=== PATIENT | female | born 1955 | race Caucasian/White ===

== ENCOUNTER 2018-01-02 02:52 | Emergency (ER) | payer OTHER, MEDICARE ==
[~2018-01-02] VITALS: Ht 154.9 cm; Wt 86.6 kg
[~2018-01-02 02:52] MED LIST: AMOXIL500 MG PO; BACTRIM DS 8001 TAB PO; LISINOPRIL/HYDR1 TAB PO
--- NOTE | 2018-01-02 02:59 | ED GI/GU/ABDOMINAL COMPLAINT ---
History of Present Illness General Chief Complaint: Abdominal Pain/Flank Pain Stated Complaint: "ABD PAIN IN BELLY BUTTON, BURNING URINATION" Source: patient Exam Limitations: no limitations Vital Signs & Intake/Output Vital Signs & Intake/Output Vital Signs Date Time Temp Pulse Resp B/P B/P Pulse O2 O2 Flow FiO2 Mean Ox Delivery Rate 01/02 0357 97.4 89 18 149/84 99 Room Air 01/02 0315 98 Room Air 01/02 0307 97.6 103 18 134/103 99 Room Air Allergies Coded Allergies: MDX - Aspirin (Aspirin) (U 07/18/12) Tetanus Vaccines and Toxoid (RASH 01/02/18) Reconcile Medications Amoxicillin (Amoxil) 500 MG CAP 1 TAB PO TID CELLULITIS Clotrimazole (Lotrimin AF) 1 % CREAM..G. 1 SHERIE TOP BID fungal skin infection apply to affected area(s)x 7 days LISINOPRIL/HYDROCHLOROTHIAZIDE (Lisinopril-Hctz 10-12.5 MG Tab) 1 TAB TAB 1 TAB PO DAILY HEART HEALTH (Reported) Phenazopyridine HCl (Pyridium) 100 MG TABLET 1 TAB PO TID PRN painful urination Sulfamethoxazole/Trimethopri (Bactrim Ds 800 MG-160 MG) 1 TAB TAB 1 TAB PO BID CELLULITIS Triage Nurses Notes Reviewed? yes ? n Is pt currently ? No Onset: Gradual Duration: day(s): Timing: recent history Quality/Severity: burning Location: suprapubic Radiation: no radiation Prior Abdominal Problems: none Modifying Factors: Improves With: rest. Worsens With: urinating. Associated Symptoms: dysuria, itchy rash at umbilicus HPI: 62 yo woman in prior good health presents with 2-3 days of dysuria, increased urination, without flank pain, fever, chills. She also noted yesterday an itchy red rash in her umbilicus, without tenderness, discharge, pain. She is otherwise well. Past History Travel History Traveled to [place] past 21 day No Medical History Any Pertinent Medical History? see below for history Surgical History Surgical History: none, non-contributory Psychosocial History What is your primary language [place] Family History Hx Contributory? No Review of Systems Review of Systems Constitutional: Reports: no symptoms. EENTM: Reports: no symptoms. Respiratory: Reports: no symptoms. Cardiovascular: Reports: no symptoms. GI: Reports: no symptoms. Genitourinary: Reports: no symptoms. Musculoskeletal: Reports: no symptoms. Skin: Reports: no symptoms. Neurological/Psychological: Reports: no symptoms. Hematologic/Endocrine: Reports: no symptoms. Immunologic/Allergic: Reports: no symptoms. All Other Systems: Reviewed and Negative Physical Exam Physical Exam General Appearance: well developed/nourished, no apparent distress Head: atraumatic, normal appearance Eyes: Bilateral: normal appearance. Ears, Nose, Throat, Mouth: hearing grossly normal, moist mucous membrane Neck: normal inspection, supple, full range of motion Respiratory: normal breath sounds, chest non-tender, no respiratory distress, quiet respiration, lungs clear Cardiovascular: regular rate/rhythm Gastrointestinal: non tenderness to firm palpation in all 4 quadrants. umbilicus with erythema, non tender, c/w fungus infection Back: normal inspection, normal range of motion Extremities: normal range of motion Neurologic/Psych: no motor/sensory deficits, awake, alert, oriented x 3 Skin: intact, normal color, warm/dry Core Measures ACS in differential dx? No Sepsis Present: No Sepsis Focused Exam Completed? No Progress Differential Diagnosis: uti vs other. Plan of Care: Orders Procedure Date/time Status URINALYSIS 01/03 256 Complete Laboratory Tests 01/02/18 0325: Urine Color YEL, Urine Clarity CLEAR, Urine pH 5.0, Ur Specific Cruger >= 1.030 , Urine Protein TRACE H, Urine Ketones NEG, Urine Nitrite NEG, Urine Bilirubin NEG, Urine Urobilinogen 0.2, Ur Leukocyte Esterase NEG, Ur Microscopic SEDIMENT EXAMINED, Urine RBC 1-3, Urine WBC RARE, Ur Epithelial Cells MOD H, Urine Mucus MANY H, Urine Hemoglobin SMALL H, Urine Glucose NEG 01/02/18 0256: Total Bilirubin Cancelled, Direct Bilirubin Cancelled, AST Cancelled, ALT Cancelled, Alkaline Phosphatase Cancelled, Total Protein Cancelled, Albumin Cancelled, CBC w Diff Cancelled, WBC Cancelled, RBC Cancelled, Hgb Cancelled, Hct Cancelled, MCV Cancelled, MCH Cancelled, MCHC Cancelled, RDW Cancelled, Plt Count Cancelled, MPV Cancelled Initial ED EKG: none Departure Departure Disposition: HOME OR SELF CARE Condition: Stable Clinical Impression Primary Impression: Fungal skin infection Referrals: Chava Cannon MD (PCP/Family) Departure Forms: Customer Survey General Discharge Information Prescriptions: Current Visit Scripts Phenazopyridine HCl (Pyridium) 1 TAB PO TID PRN painful urination #6 TAB Clotrimazole (Lotrimin AF) 1 SHERIE TOP BID #24 GM apply to affected area(s)x 7 days Comments 01/02/18, 3:59AM... rx for lotrimin for topical yeast infection. will give pyridium for dysuria... i doubt uti given benign u/a. close follow up advised.
[2018-01-02] MEDS ORDERED: PYRIDIUM100 M1 PO (03:51)
[2018-01-02] MEDS ORDERED: LOTRIMIN AF12 GM TOP (03:51)
[2018-01-02 03:57] VITALS: BP 149/84
== END 2018-01-02 03:58 ==
LOC: ERH 02:52
DX: B36.9 Superficial mycosis, unspecified (principal); R30.0 Dysuria
CPT/HCPCS: 81001